=== PATIENT | male | born 1980 | race Caucasian/White ===

== ENCOUNTER 2020-01-23 17:59 | Emergency (ER) | payer OTHER ==
[~2020-01-23] VITALS: Ht 182.9 cm; Wt 95.3 kg
[2020-01-23 18:03] VITALS: BP 132/94
[2020-01-23] MEDS ORDERED: CIPROFLOXIN HC2.5 M1 OPHTHALMIC (18:40)
[2020-01-23] MEDS ORDERED: KEFLEX500 M1 PO (18:40)
== END 2020-01-23 18:47 | disposition home or self-care (01) ==
LOC: M.ERS 17:59
DX: H00.014 Hordeolum externum left upper eyelid (principal); J45.909 Unspecified asthma, uncomplicated

== ENCOUNTER 2021-04-05 12:06 | Emergency (ER) | payer OTHER, MEDICAID ==
[~2021-04-05] VITALS: Ht 182.9 cm; Wt 100.7 kg
[~2021-04-05 12:06] MED LIST: CIPROFLOXIN HC2.5 M1 OPHTHALMIC; KEFLEX500 M1 PO
[2021-04-05 15:00] VITALS: BP 143/92
== END 2021-04-05 15:00 | disposition home or self-care (01) ==
LOC: M.ERS 12:06
DX: J45.909 Unspecified asthma, uncomplicated (principal); Z20.822 Contact with and (suspected) exposure to COVID-19